=== PATIENT | female | born 1980 | race African-American/Black ===

== ENCOUNTER 2025-02-16 05:21 | Emergency (ER) | payer BC, SELFPAY ==
[2025-02-16] MEDS ORDERED: Dexamethasone 10 MG/ML VIAL ONE (07:48)
== END 2025-02-16 08:05 | disposition home or self-care (01) ==
LOC: ERS 05:21
DX: J45.901 Unspecified asthma with (acute) exacerbation (principal); B34.9 Viral infection, unspecified; I10 Essential (primary) hypertension
CPT/HCPCS: 71045; 87428; 96372; J1100; J7620